=== PATIENT | female | born 1990 | race Caucasian/White ===

== ENCOUNTER 2018-07-15 08:12 | Emergency (ER) | payer OTHER ==
[~2018-07-15] VITALS: Ht 152.4 cm; Wt 57.6 kg
[~2018-07-15 08:12] MED LIST: FOLIC ACID1 MG PO; LAC PO; LEVOTHYROXIN0.025 M2 PO; MAC100 PO; PHE30 PO; PHENOBARBITAL64.8 MG PO
[2018-07-15 08:15] VITALS: Ht 152.4 cm; Wt 57.6 kg
[2018-07-15 09:26] LABS: microscopic required? NO
[2018-07-15 09:52] LABS: UA SPECIFIC GRAVITY 1.025 (1.005-1.035); urine erythrocyte NEGATIVE (NEGATIVE)
[2018-07-15 10:04] LABS: CALCIUM 8.1 mg/dL (8.5-10.1); CARBON DIOXIDE 28.7 mmol/L (21-32); CHLORIDE SERUM 104 mmol/L (98-107); CREATININE SERUM 0.6 mg/dL (0.6-1.0); GFR1 > 60 mL/min; GLUCOSE SERUM 85 mg/dL (74-106); POTASSIUM SERUM 4.8 mmol/L (3.5-5.1); SODIUM SERUM 137 mmol/L (136-145)
[2018-07-15 10:08] LABS: ALBUMIN 3.8 g/dL (3.4-5.0); ALKALINE PHOSPHATASE 66 U/L (46-116); ALT/SGPT 19 U/L (14-59); AMYLASE 94 U/L (25-115); AST/SGOT 23 U/L (15-37); BILIRUBIN TOTAL 0.2 mg/dL (0.20-1.00); CHOLESTEROL 151 mg/dL (<200); LIPASE 126 IU/L (73-393); TOTAL PROTEIN, SERUM 7.6 g/dL (6.4-8.2)
[2018-07-15 10:19] LABS: BASOPHIL % 0.6 % (0-2); PLATELET COUNT 154 x10^3mcL (130-400); RED CELL DISTRIBUTION WIDTH 13.2 % (11.5-14.5)
[2018-07-15 11:10] VITALS: BP 102/68
== END 2018-07-15 11:10 | disposition home or self-care (01) ==
LOC: ED 08:12
PROVIDERS: Emergency Medicine
DX: K80.70 Calculus of gallbladder and bile duct without cholecystitis without obstruction (principal); G40.909 Epilepsy, unspecified, not intractable, without status epilepticus; F32.9 Major depressive disorder, single episode, unspecified; E03.9 Hypothyroidism, unspecified; F41.9 Anxiety disorder, unspecified; Z88.8 Allergy status to other drugs, medicaments and biological substances
CPT/HCPCS: J1885